=== PATIENT | female | born 1965 | race Caucasian/White ===

== ENCOUNTER 2019-02-19 12:29 | Day surgery (SDC) | payer OTHER, BC ==
[2019-02-19] MEDS ORDERED: FENTAnyl 50 MCG/ML VIAL (14:14)
[2019-02-19] MEDS ORDERED: MIDAZOLAM 1 MG/ML 2 ML INJ ×2 (14:14)
== END 2019-02-19 15:04 | disposition home or self-care (01) ==
LOC: GIL 12:29
DX: K64.8 Other hemorrhoids (principal); J45.909 Unspecified asthma, uncomplicated
CPT/HCPCS: 45378; 84703